=== PATIENT | male | born 1970 | race Two or more races ===

== ENCOUNTER 2022-01-02 22:56 | Inpatient (IN) ==
[2022-01-02] MEDS ORDERED: cefTRIAXone 1 gm/50 mL D5W 1 GM/50 ML BAG IV ONE (23:22)
[2022-01-02] MEDS ORDERED: Albuterol/Ipratropium NEB.SOL (2.5/0.5 MG) 3 ML NEB.SOLN INH PRN (23:22)
[2022-01-02] MEDS ORDERED: Azithromycin 500 mg/250 ml NS 500 MG/250 ML BAG IVPB ONE (23:23)
[2022-01-02] MEDS ORDERED: methylPREDNISolone SOD SUCC 125 mg 2 ML VIAL IV ONE (23:24)
[2022-01-02 23:48] LABS: ABS Eosinophils 0.1 10^3/ul (0-0.6); ABS Lymphocytes 0.8 10^3/ul (1.0-4.8); ABS Monocytes 0.6 10^3/ul (0-0.8); ABS Neutrophils 6.8 10^3/ul (1.5-7.7); Eosinophil % 0.7 %; Hematocrit 47 % (42-52); Hemoglobin 15.6 g/dL (14.0-18.0); Lymphocyte % 9.1 %; Mean Corpuscular HGB Conc 34 g/dL (31-36); Mean Corpuscular Hemoglobin 33 pg (27-31); Mean Corpuscular Volume 98 fL (80-94); Mean Platelet Volume 7.4 fL (7.4-10.4); Nucleated Red Blood Cells % 0.1; Platelet Count 155 10^3/uL (150-450); Red Blood Count 4.77 10^6 /uL (4.18-5.48); Red Cell Distribution Width 14 % (10-15); White Blood Count 8.2 10^3/uL (3.5-10.8)
[2022-01-03 00:24] LABS: Albumin 4.3 g/dL (3.2-5.2); Albumin/Globulin Ratio 1.6 (1-3); Calcium 8.8 mg/dL (8.6-10.3); Globulin 2.7 g/dL (2-4); Potassium 4.6 mmol/L (3.5-5.0); Total Bilirubin 0.6 mg/dL (0.2-1.0); eGFR CKD-EPI 109.2 (>60)
[2022-01-03] MEDS ORDERED: Lactated Ringers 1000 ml BAG 1,000 ML IV ONE (00:31)
[2022-01-03 04:33] LABS: Urine Appearance Clear; Urine Bilirubin Negative (Negative); Urine Blood Negative (Negative); Urine Color Yellow; Urine Glucose Negative (Negative); Urine Ketones Trace (Negative); Urine Nitrite Negative (Negative); Urine Protein Negative (Negative); Urine Specific Gravity 1.004 (1.002-1.030); Urine Urobilinogen Negative (Negative)
[2022-01-03] MEDS ORDERED: methylPREDNISolone SOD SUCC 40 mg/ml 1 ml VIAL IV SCH (06:00)
[2022-01-03] MEDS: Enoxaparin 40 MG/0.4 ML SYR SUBCUT SCH (06:23)
[2022-01-03] MEDS: Albuterol HFA INHALER 8 gm MDI INH SCH ×4 (08:24→19:09)
[2022-01-03] MEDS: SPIRIVA Respimat (tiotropium) 2.5 mcg/inh Inhaler INH SCH (10:58)
[2022-01-03 11:10] LABS: C Reactive Protein 45.57 mg/L (<8.01)
[2022-01-03 11:23] LABS: PCO2 Arterial 57 mmHg (35-45); PO2 Arterial 62 mmHg (80-100)
[2022-01-03] MEDS: Mometasone/Formoter 200/5 MDI INH SCH ×2 (14:06→19:08)
[2022-01-03] MEDS ORDERED: cefTRIAXone 1 gm/50 mL D5W 1 GM/50 ML BAG IV SCH (23:30)
[2022-01-04] MEDS ORDERED: Azithromycin 500 mg/250 ml NS 500 MG/250 ML BAG IVPB SCH (00:30)
[2022-01-04] MEDS: Enoxaparin 40 MG/0.4 ML SYR SUBCUT SCH (05:49)
[2022-01-04 06:28] LABS: ABS Lymphocytes 1.1 10^3/ul (1.0-4.8); ABS Monocytes 0.9 10^3/ul (0-0.8); ABS Neutrophils 4.4 10^3/ul (1.5-7.7); Eosinophil % 0.1 %; Hematocrit 45 % (42-52); Hemoglobin 15.6 g/dL (14.0-18.0); Lymphocyte % 16.9 %; Mean Corpuscular HGB Conc 34 g/dL (31-36); Mean Corpuscular Hemoglobin 34 pg (27-31); Mean Corpuscular Volume 98 fL (80-94); Mean Platelet Volume 7.9 fL (7.4-10.4); Nucleated Red Blood Cells % 0.1; Platelet Count 182 10^3/uL (150-450); Red Blood Count 4.64 10^6 /uL (4.18-5.48); Red Cell Distribution Width 14 % (10-15); White Blood Count 6.4 10^3/uL (3.5-10.8)
[2022-01-04 07:04] LABS: Albumin/Globulin Ratio 1.5 (1-3); Calcium 9.3 mg/dL (8.6-10.3); Globulin 2.6 g/dL (2-4); Potassium 4.8 mmol/L (3.5-5.0); Total Bilirubin 0.5 mg/dL (0.2-1.0); Total Protein 6.6 g/dL (6.4-8.9); eGFR CKD-EPI 110.7 (>60)
[2022-01-04] MEDS: Albuterol HFA INHALER 8 gm MDI INH SCH ×4 (08:33→19:38)
[2022-01-04] MEDS: Mometasone/Formoter 200/5 MDI INH SCH ×2 (08:33→19:38)
[2022-01-04] MEDS: SPIRIVA Respimat (tiotropium) 2.5 mcg/inh Inhaler INH SCH (08:34)
[2022-01-04] MEDS: Nicotine PATCH 7 MG/24 HR PATCH TRANSDERM SCH (11:16)
[2022-01-04] MEDS ORDERED: NS 0.9% 1000 ml BAG 1,000 ML IV ONE (12:17)
[2022-01-04 12:56] LABS: Magnesium 2.3 mg/dL (1.9-2.7)
[2022-01-04 13:21] LABS: Folate 5.78 ng/mL (5.90-24.80)
[2022-01-04] MEDS ORDERED: Polyethylene Glycol 3350 17 GM PACKET PO PRN (20:54)
[2022-01-04] MEDS ORDERED: Senna TAB 8.6 mg TAB PO PRN (20:54)
[2022-01-05] MEDS: Enoxaparin 40 MG/0.4 ML SYR SUBCUT SCH (05:44)
[2022-01-05] MEDS: SPIRIVA Respimat (tiotropium) 2.5 mcg/inh Inhaler INH SCH (07:51)
[2022-01-05] MEDS: Albuterol HFA INHALER 8 gm MDI INH SCH ×5 (07:52→23:24)
[2022-01-05] MEDS: Mometasone/Formoter 200/5 MDI INH SCH ×2 (07:52→19:13)
[2022-01-05 08:20] LABS: Calcium 8.9 mg/dL (8.6-10.3); Magnesium 2.2 mg/dL (1.9-2.7); Potassium 4.2 mmol/L (3.5-5.0); eGFR CKD-EPI 110.7 (>60)
[2022-01-05] MEDS: Nicotine PATCH 7 MG/24 HR PATCH TRANSDERM SCH (08:43)
[2022-01-05] MEDS ORDERED: Albuterol/Ipratropium NEB.SOL (2.5/0.5 MG) 3 ML NEB.SOLN INH ONE (10:31)
[2022-01-05] MEDS ORDERED: Albuterol/Ipratropium NEB.SOL (2.5/0.5 MG) 3 ML NEB.SOLN INH PRN (10:34)
[2022-01-05 10:45] LABS: TSH Ultra Thyroid Stim Horm 0.64 mcIU/mL (0.34-5.60)
[2022-01-05] MEDS ORDERED: Ipratropium HFA INHALER(NF) (ALTERNATIVE = NEBS) INH ONE (10:59)
[2022-01-05] MEDS ORDERED: Ipratropium HFA INHALER(NF) (ALTERNATIVE = NEBS) INH PRN (11:01)
[2022-01-05] MEDS: methylPREDNISolone SOD SUCC 40 mg/ml 1 ml VIAL IV SCH ×3 (11:21→23:59)
[2022-01-05 11:23] LABS: Hepatitis B Surface Antigen Nonreactive (Nonreactive)
[2022-01-05 11:28] LABS: Hepatitis A Ab IgM Negative (Negative)
[2022-01-05 11:29] LABS: Hepatitis B Core IgM Nonreactive (Nonreactive)
[2022-01-05 11:35] LABS: HIV 4th Generation Nonreactive (Nonreactive)
[2022-01-05 11:40] LABS: Hepatitis C Antibody Negative (Negative)
[2022-01-06] MEDS: Albuterol HFA INHALER 8 gm MDI INH SCH ×6 (03:11→23:00)
[2022-01-06] MEDS: Enoxaparin 40 MG/0.4 ML SYR SUBCUT SCH (05:56)
[2022-01-06] MEDS: Mometasone/Formoter 200/5 MDI INH SCH ×2 (07:42→20:13)
[2022-01-06] MEDS: SPIRIVA Respimat (tiotropium) 2.5 mcg/inh Inhaler INH SCH (07:43)
[2022-01-06] MEDS: Nicotine PATCH 7 MG/24 HR PATCH TRANSDERM SCH (08:43)
[2022-01-06] MEDS: methylPREDNISolone SOD SUCC 40 mg/ml 1 ml VIAL IV SCH ×2 (10:56→22:10)
[2022-01-07] MEDS: Albuterol HFA INHALER 8 gm MDI INH SCH ×3 (03:59→10:51)
[2022-01-07] MEDS: Mometasone/Formoter 200/5 MDI INH SCH (08:11)
[2022-01-07] MEDS: SPIRIVA Respimat (tiotropium) 2.5 mcg/inh Inhaler INH SCH (08:11)
[2022-01-07] MEDS: Nicotine PATCH 7 MG/24 HR PATCH TRANSDERM SCH (08:34)
[2022-01-07] MEDS: Enoxaparin 40 MG/0.4 ML SYR SUBCUT SCH (08:35)
[2022-01-07 11:06] VITALS: BP 137/77
== END 2022-01-07 11:00 | disposition home or self-care (01) | DRG 140 ==
LOC: ED 22:56 → EDHOLD 01-03 04:53 → INTOOBSV 01-03 04:53 → SUATTDRO 01-03 04:53 → MEDTELE 01-04 05:28
PROVIDERS: ADMIT Internal Medicine; ATTEND Internal Medicine

== ENCOUNTER 2023-12-07 20:56 | Observation (INO) ==
[2023-12-07 21:27] LABS: ABS Eosinophils 0.3 10^3/uL (0.0-0.5); ABS Lymphocytes 2.6 10^3/uL (1.0-4.8); ABS Monocytes 0.7 10^3/uL (0.0-1.1); ABS Neutrophils 2.4 10^3/uL (1.5-7.6); Hematocrit 43.3 % (38-53); Lymphocyte % 42.5 %; Mean Corpuscular Hemoglobin 33.7 pg (27-33); Mean Corpuscular Hgb Conc 34.7 g/dL (31-36); Mean Corpuscular Volume 97.2 fL (80-97); Mean Platelet Volume 7.3 fL (7.5-11.2); Platelet Count 236 10^3/uL (150-450); Red Blood Count 4.45 10^6/uL (4.06-5.63); Red Cell Distribution Width 14.1 % (12-17)
[2023-12-07] MEDS: Albuterol/Ipratropium NEB.SOL (2.5/0.5 MG) 3 ML NEB.SOLN INH ONE ×2 (21:39→22:58)
[2023-12-07 22:17] LABS: Albumin 4.5 g/dL (3.2-5.2); Albumin/Globulin Ratio 1.7 (1-3); Calcium 9.4 mg/dL (8.6-10.3); Creatinine, Serum 0.81 mg/dL (0.67-1.17); Globulin 2.6 g/dL (2-4); Potassium 4.1 mmol/L (3.5-5.0); Total Bilirubin 0.3 mg/dL (0.2-1.0); Total Protein 7.1 g/dL (6.4-8.9); eGFR CKD-EPI 104.1 (>60)
[2023-12-07] MEDS: Azithromycin 500 mg/250 ml NS 500 MG/250 ML BAG IVPB ONE (22:58)
[2023-12-07] MEDS: cefTRIAXone 1 gm/50 mL D5W 1 GM/50 ML BAG IV ONE (22:58)
[2023-12-08] MEDS ORDERED: Senna TAB 8.6 mg TAB PO PRN (00:42)
[2023-12-08] MEDS ORDERED: Polyethylene Glycol 3350 17 GM PACKET PO PRN (00:42)
[2023-12-08] MEDS ORDERED: Nicotine GUM 2MG FRUIT FLAVOR PO PRN (00:44)
[2023-12-08] MEDS: Iohexol 300 (CONTRAST) 10 ML SDV IV ONE (01:37)
[2023-12-08 03:36] LABS: Vitamin D Total 25(OH) 10.6 ng/mL (20-50)
[2023-12-08 04:47] LABS: Hepatitis C Antibody Negative (Negative)
[2023-12-08 05:47] LABS: Albumin 4.3 g/dL (3.2-5.2); Albumin/Globulin Ratio 1.7 (1-3); Calcium 8.9 mg/dL (8.6-10.3); Creatinine, Serum 0.6 mg/dL (0.67-1.17); Globulin 2.5 g/dL (2-4); Potassium 4.8 mmol/L (3.5-5.0); Total Bilirubin 0.3 mg/dL (0.2-1.0); Total Protein 6.8 g/dL (6.4-8.9)
[2023-12-08] MEDS: SPIRIVA Respimat (tiotropium) 2.5 mcg/inh Inhaler INH SCH (07:33)
[2023-12-08] MEDS: Albuterol/Ipratropium NEB.SOL (2.5/0.5 MG) 3 ML NEB.SOLN INH SCH (07:33)
[2023-12-08] MEDS: Enoxaparin 40 MG/0.4 ML SYR SUBCUT SCH (08:34)
[2023-12-08] MEDS: Nicotine PATCH 14 MG/24 HR PATCH TRANSDERM SCH (08:34)
[2023-12-08 17:10] LABS: Magnesium 2.7 mg/dL (1.9-2.7)
[2023-12-08] MEDS: cefTRIAXone 1 gm/50 mL D5W 1 GM/50 ML BAG IV SCH (21:09)
[2023-12-08] MEDS: Azithromycin 500 mg/250 ml NS 500 MG/250 ML BAG IVPB SCH (22:17)
[2023-12-09] MEDS: Multivitamins/Minerals TAB PO SCH (08:32)
[2023-12-09 13:00] VITALS: BP 146/94
[2023-12-09] MEDS ORDERED: Albuterol/Ipratropium NEB.SOL (2.5/0.5 MG) 3 ML NEB.SOLN INH PRN (18:45)
== END 2023-12-09 16:50 | disposition home health service (06) ==
LOC: EDHOLD 20:56 → ED 20:56 → SUATTDRO 22:56 → MEDTELE 12-08 02:34
PROVIDERS: ADMIT Internal Medicine; ATTEND Hospitalist